=== PATIENT | male | born 1955 | race Caucasian/White ===

== ENCOUNTER 2017-09-29 10:32 | Outpatient (CLI) | payer BC ==
--- NOTE | 2017-09-29 13:08 | RAD ---
PA AND LATERAL VIEWS OF CHEST: Date: 09/29/17 HISTORY: Chest pain. FINDINGS: The heart size is normal. The lungs are expanded without focal areas of consolidation, pneumothorax, or pleural effusions. There are degenerative changes in the spine. IMPRESSION: No acute process. POS: OFF
== END 2017-09-29 10:33 | disposition home or self-care (01) ==
LOC: RAD-FRANK 10:32
PROVIDERS: ATTEND Nurse Practitioner Family
DX: R07.9 Chest pain, unspecified (principal)
CPT/HCPCS: 71046